=== PATIENT | male | born 1955 | race Caucasian/White ===

== ENCOUNTER 2020-03-27 15:18 | Emergency (ER) | payer BC ==
[2020-03-27] MEDS ORDERED: Acetaminophen/oxyCODONE 325-5 MG Tab PO ONE (15:39)
--- NOTE | 2020-03-27 16:38 | CT ---
CT abdomen and pelvis Technique: Multiple axial sections were obtained from above the dome of the diaphragm inferiorly through the pubic symphysis. Intravenous and oral contrast not utilized. Study has been performed as a ureteral stone protocol. Findings: Inflammatory change is noted around the left kidney. Left ureter is dilated. These findings are caused by an obstructing stone within the mid to distal left ureter measuring approximately 9 mm in greatest dimension. More distal left ureter shows no dilatation. This stone is approximately 4-5 cm from the UVJ. Right kidney shows several nonobstructing calculi. Left kidney shows a minimal nonobstructing stone. Right kidney shows 2 cystse with largest measuring 3.6 cm. Other findings: Visualized lung bases show nothing acute. Noncontrast appearance of the liver shows a small low density lesion inferiorly within the right lobe which most likely represents a cyst and measures about 1.5 cm in size. Spleen appears within normal limits. Adrenal glands show no nodule. Pancreas shows no abnormality. Aorta shows atherosclerotic calcification which continues into the iliac vessels. No retroperitoneal adenopathy or mesenteric abnormalities are seen. No pelvic mass or adenopathy is noted. Diverticuli are seen within the sigmoid colon without diverticulitis. Lesser diverticuli are noted within the descending colon again without diverticulitis. Prostate gland mildly enlarged. Appendix is felt to be visualized and shows no surrounding inflammatory change. Bone window settings were reviewed which shows slight degenerative change most prominent at L4-5. Impression: 1. Obstructing 9 mm stone within the mid to distal left ureter located approximately 4-5 cm from the UVJ. 2. Small nonobstructing calculi within both kidneys. 3. Other findings believed to be nonacute as noted above. Diagnostic code #3 This report was dictated in MDT
--- NOTE | 2020-03-27 17:29 | EDM.PDOC ---
ED HPI GENERAL MEDICAL PROBLEM - General Chief Complaint: Flank Pain Stated Complaint: FLANK PAIN Time Seen by Provider: 03/27/20 15:28 Source of Information: Reports: Patient History Limitations: Reports: No Limitations - History of Present Illness INITIAL COMMENTS - FREE TEXT/NARRATIVE: The patient presents with left flank pain that radiates to his left abdomen. He has nausea but no vomiting. He took a zofran and a percocet and that helped. He has a history of stones and Dr Maurice is his urologist. He did notice some hematuria. He has no fever, chills, cough, congestion, or runny nose. Onset: Gradual Duration: Day(s): Location: Reports: Abdomen, Back Quality: Reports: Ache Severity: Mild Improves with: Reports: None Worsens with: Reports: None Associated Symptoms: Reports: Nausea/Vomiting. Denies: Chest Pain, Cough, Fever /Chills, Headaches, Shortness of Breath Left Flank Pain Score (Numeric/FACES): 7 - Related Data Allergies Allergy/AdvReac Type Severity Reaction Status Date / Time No Known Allergies Allergy Verified 03/27/20 15:28 Home Meds: Home Meds Alfuzosin HCl [Alfuzosin HCl ER] 10 mg PO DAILY 03/27/20 [History] Canagliflozin/Metformin HCl [Invokamet Xr 50-1,000 mg Tab] 1 tab PO BID [History] Ondansetron [Zofran ODT] 4 mg PO Q6H PRN #20 tab.dis 03/27/20 [Rx] Rosuvastatin [Crestor] 20 mg PO DAILY 03/27/20 [History] Vitamin E 800 mg PO DAILY 03/27/20 [History] oxyCODONE HCl/Acetaminophen [Percocet 5-325 mg Tablet] 1 - 2 each PO Q6HR PRN # 20 tablet 03/27/20 [Rx] Past Medical History HEENT History: Reports: Impaired Vision Cardiovascular History: Reports: High Cholesterol, Hypertension Gastrointestinal History: Reports: Diverticulosis Endocrine/Metabolic History: Reports: Diabetes, Type II, Hyperparathyroidism Social & Family History - Tobacco Use Smoking Status *Q: Never Smoker - Caffeine Use Caffeine Use: Reports: Coffee - Recreational Drug Use Recreational Drug Use: No ED ROS GENERAL - Review of Systems Review Of Systems: See Below Constitutional: Reports: No Symptoms HEENT: Reports: No Symptoms Respiratory: Reports: No Symptoms Cardiovascular: Reports: No Symptoms Endocrine: Reports: No Symptoms GI/Abdominal: Reports: Abdominal Pain, Nausea. Denies: Vomiting : Reports: Flank Pain, Hematuria ED EXAM, GI/ABD - Physical Exam Exam: See Below Exam Limited By: No Limitations General Appearance: Alert, No Apparent Distress Ears: Normal External Exam Nose: Normal Inspection Head: Atraumatic, Normocephalic Neck: Normal Inspection Respiratory/Chest: No Respiratory Distress, Lungs Clear, Normal Breath Sounds Cardiovascular: Regular Rate, Rhythm, No Edema, No Murmur GI/Abdominal Exam: Soft, Non-Tender, No Organomegaly, No Mass Back Exam: Normal Inspection Extremities: Normal Inspection Course - Vital Signs Last Recorded V/S: Last Vital Signs Temp 98.4 F 03/27/20 15:33 Pulse 85 03/27/20 15:33 Resp 12 03/27/20 15:33 BP 160/73 H 03/27/20 15:33 Pulse Ox 100 03/27/20 15:33 - Orders/Labs/Meds Labs: Laboratory Tests 03/27/20 03/27/20 03/27/20 Range/Units 15:52 15:52 16:17 WBC 11.37 H (4.23-9.07) K/mm3 RBC 5.16 (4.63-6.08) M/mm3 Hgb 16.2 (13.7-17.5) gm/dl Hct 50.5 (40.1-51.0) % MCV 97.9 H (79.0-92.2) fl MCH 31.4 (25.7-32.2) pg MCHC 32.1 L (32.2-35.5) g/dl RDW Std Deviation 48.4 H (35.1-43.9) fL Plt Count 164 (163-337) K/mm3 MPV 9.6 (9.4-12.3) fl Neut % (Auto) 76.0 H (34.0-67.9) % Lymph % (Auto) 11.0 L (21.8-53.1) % [place] % (Auto) 11.6 (5.3-12.2) % Eos % (Auto) 1.1 (0.8-7.0) Baso % (Auto) 0.1 (0.1-1.2) % Neut # (Auto) 8.65 H (1.78-5.38) K/mm3 Lymph # (Auto) 1.25 L (1.32-3.57) K/mm3 [place] # (Auto) 1.32 H (0.30-0.82) K/mm3 Eos # (Auto) 0.12 (0.04-0.54) K/mm3 Baso # (Auto) 0.01 (0.01-0.08) K/mm3 Sodium 142 (136-145) mEq/L Potassium 4.7 (3.5-5.1) mEq/L Chloride 106 (98-107) mEq/L Carbon Dioxide 28 (21-32) mEq/L Anion Gap 12.7 (5-15) BUN 24 H (7-18) mg/dL Creatinine 1.3 (0.7-1.3) mg/dL Est Cr Clr Drug Dosing 59.27 mL/min Estimated GFR (MDRD) 56 (>60) mL/min BUN/Creatinine Ratio 18.5 H (14-18) Glucose 106 (80-115) mg/dL Calcium 10.3 H (8.5-10.1) mg/dL Total Bilirubin 0.7 (0.2-1.0) mg/dL AST 25 (15-37) U/L ALT 53 (16-63) U/L Alkaline Phosphatase 95 (46-116) U/L Total Protein 7.6 (6.4-8.2) g/dl Albumin 3.8 (3.4-5.0) g/dl Globulin 3.8 gm/dL Albumin/Globulin Ratio 1.0 (1-2) Lipase 91 (73-393) U/L Urine Color Yellow (Yellow) Urine Appearance Slt cloudy H (Clear) Urine pH 5.5 (5.0-8.0) Ur Specific [place] > or = 1.030 (1.005-1.030) Urine Protein Trace H (Negative) Urine Glucose (UA) 2+ H (Negative) Urine Ketones Negative (Negative) Urine Occult Blood 3+ H (Negative) Urine Nitrite Negative (Negative) Urine Bilirubin Negative (Negative) Urine Urobilinogen 0.2 (0.2-1.0) Ur Leukocyte Esterase Negative (Negative) Urine RBC 50-75 H (0-5) /hpf Urine WBC 0-5 (0-5) /hpf Ur Squamous Epith Cells 0-5 (0-5) /hpf Calcium Oxalate Crystal Few H (NONE) Urine Bacteria Few (FEW) /hpf Urine Mucus Few (FEW) /hpf Meds: Medications Discontinued Medications Generic Name Dose Route Start Last Admin Trade Name Freq PRN Reason Stop Dose Admin Oxycodone/Acetaminophen 1 tab 03/27/20 15:39 03/27/20 15:48 Percocet 325-5 Mg PO 03/27/20 15:40 1 tab ONETIME ONE Administration - Re-Assessments/Exams Free Text/Narrative Re-Assessment/Exam: 03/27/20 17:27 I ordered labs, UA and a CT of her abdomen and pelvis. His CT shows obstructing 9mm stone within the mid to distal left ureter located approximately 4-5 cm from the UVJ. Small nonobstructing calculi within both kidneys. Other findings believed to be nonacute as noted above. I am waiting on his UA and then I will call the urologist at [facility]. 03/27/20 17:58 His WBC was 11.37. His CMP looks good with normal renal function. His UA shows no UTI but he did have blood. I called [facility] in [place] and talked with Dr Maradiaga the urologist donor relations coordinator and he said there is nothing to do tonight but he may need intervention. The patient will contact Dr Maurice tomorrow. Departure - Departure Time of Disposition: 18:00 Disposition: Home, Self-Care 01 Condition: Good Clinical Impression: Ureteric colic, Ureteral calculus, left, Kidney stone on left side - Discharge Information *PRESCRIPTION DRUG MONITORING PROGRAM REVIEWED*: No *COPY OF PRESCRIPTION DRUG MONITORING REPORT IN PATIENT GERRI: No Prescriptions: oxyCODONE HCl/Acetaminophen [Percocet 5-325 mg Tablet] 1 - 2 each PO Q6HR PRN # 20 tablet PRN Reason: Pain Ondansetron [Zofran ODT] 4 mg PO Q6H PRN #20 tab.dis PRN Reason: Nausea\vomiting Referrals: Ifeoma Moreira MD [Primary Care Provider] - Tatum Garcia MD [Ordering Only Provider] - 2 Days Forms: ED Department Discharge Additional Instructions: Drink plenty of fluids. Take zofran every 6 hours as needed for nausea and vomiting. Take the percocet as needed for pain. Please return if you are worse. Call Dr Garcia's office tomorrow. Sepsis Event Note (ED) - Evaluation Sepsis Screening Result: No Definite Risk - Focused Exam Vital Signs: Vital Signs Temp Pulse Resp BP Pulse Ox 03/27/20 15:33 98.4 F 85 12 160/73 H 100
== END 2020-03-27 18:15 | disposition home or self-care (01) ==
LOC: JD.ED 15:18
DX: N20.2 Calculus of kidney with calculus of ureter (principal); I10 Essential (primary) hypertension; E11.9 Type 2 diabetes mellitus without complications; E78.00 Pure hypercholesterolemia, unspecified; Z79.899 Other long term (current) drug therapy
CPT/HCPCS: 36415; 74176; 80053; 81001; 83690; 85025; 99284; A9270; 99283